=== PATIENT | male | born 1990 | race Caucasian/White ===

== ENCOUNTER 2020-12-29 14:28 | Emergency (ER) | payer SELFPAY ==
[~2020-12-29] VITALS: Ht 182.9 cm; Wt 96.6 kg
[2020-12-29] MEDS ORDERED: ACETAMINOPHEN ES 500 MG TABLET ONE (15:35)
[2020-12-29] MEDS: ACETAMINOPHEN ES 500 MG TABLET PO ONE (15:37)
--- NOTE | 2020-12-29 15:40 | NUR ---
Patient camein to the er c/o fevere and cough and body pain. On room air, breathing evenly and unlabored. Kept comfortable, will continue to monitor accordingly.
[2020-12-29] MEDS: IV NS 0.9% 1,000 ML BAG IV ONE (15:50)
--- NOTE | 2020-12-29 15:55 | NUR ---
linnette at bedside for chest x-ray.
[2020-12-29] MEDS ORDERED: ACET-2605 PO (16:32)
[2020-12-29 17:28] VITALS: BP 128/77
--- NOTE | 2020-12-29 17:28 | NUR ---
Patient discharged to home in stable condition. Written and verbal after care instructions given. Patient verbalizes understanding of instruction.IV removed. Catheter intact and site benign. Pressure and 4x4 applied to site. No bleeding noted.
== END 2020-12-29 17:28 | disposition home or self-care (01) ==
LOC: EDSEX 14:28 → ER 14:28
DX: U07.1 COVID-19 (principal); R03.0 Elevated blood-pressure reading, without diagnosis of hypertension; R00.0 Tachycardia, unspecified
CPT/HCPCS: 71045; 87426; 96360; 99284; C9803; J7030